=== PATIENT | female | born 1960 | race Caucasian/White ===

== ENCOUNTER 2016-11-16 00:54 | Inpatient (IN) | payer BC ==
[~2016-11-16] VITALS: Ht 157.5 cm; Wt 85.4 kg
[2016-11-16] VITALS (19 sets, daily range): BP systolic 96–110; BP diastolic 58–73; PULSE 61–80; RESP 16–24; TEMP 97.6–98.5; O2SAT 93–100
[~2016-11-16 00:54] MED LIST: ASPI81TA21 PO; CEPH500C3 PO; IBUP-238 PO; MACR100C PO; METO25 PO; PERC5TAB12 PO; PLAV75TA PO; TRAM100T19 PO; ZOCO80TA PO
[2016-11-16] MEDS ORDERED: HEPARIN SODIUM - IV 10,000 UNITS/10 ML VIAL IV STA (01:01)
[2016-11-16] MEDS ORDERED: ASPIRIN 81 MG CHEW TAB PO STA (01:01)
[2016-11-16] MEDS ORDERED: SODIUM CHLOR 0.9% 1000 ML INJ 1,000 ML IV ONE ×2 (01:01→01:15)
[2016-11-16] MEDS ORDERED: NITROGLYCERIN 0.4 MG SL 25 TABS/BTL SL STA (01:01)
[2016-11-16] MEDS ORDERED: METO25TA3 PO (01:07)
[2016-11-16] MEDS ORDERED: ASPI81CH CHEW (01:07)
[2016-11-16] MEDS ORDERED: PLAV75TA29 PO (01:07)
[2016-11-16] MEDS ORDERED: SIMV80TA PO (01:07)
[2016-11-16] MEDS ORDERED: ONDANSETRON HCL 4 MG/2 ML VIAL ONE ×2 (01:12→02:31)
[2016-11-16] MEDS ORDERED: NITROGLYCERIN-DEXTROSE INJ 250 ML IV SCH (01:15)
[2016-11-16] MEDS ORDERED: SODIUM CHLORIDE 0.9% FLUSH 10 ML FLUSH IVF PRN (01:15)
[2016-11-16 01:19] LABS: BASOPHIL # 0.1 TH/MM3 (0-0.2); EOSINOPHIL # 0.3 TH/MM3 (0-0.4); EOSINOPHIL % 3.1 % (0.0-4.0); HEMATOCRIT 44.5 % (35.0-46.0); HEMO FLAGS DIFF FINAL; LYMPH % 25.3 % (9.0-44.0); LYMPHOCYTE # 2.4 TH/MM3 (1.0-4.8); MEAN CELL VOLUME 89.7 FL (80.0-100.0); MEAN CORPUSCULAR HEMOGLOBIN 29.6 PG (27.0-34.0); MONO % 7.3 % (0.0-8.0); NEUT % 63.3 % (16.0-70.0); PLATELET COUNT 217 TH/MM3 (150-450); RED BLOOD COUNT 4.96 MIL/MM3 (4.00-5.30); RED CELL DISTRIBUTION WIDTH 13.7 % (11.6-17.2); WHITE BLOOD COUNT 9.5 TH/MM3 (4.0-11.0)
[2016-11-16 01:27] LABS: I-STAT POTASSIUM 4.4 MMOL/L (3.5-4.9); I-STAT SODIUM 140 MMOL/L (138-146)
--- NOTE | 2016-11-16 01:28 | RADRPT ---
EXAM DATE/TIME: 11/16/2016 01:12 [place] COMPARISON: No previous studies available for comparison. INDICATIONS : Stemi alert. MEDICAL HISTORY : Myocardial infarction. SURGICAL HISTORY : Coronary artery stent. ENCOUNTER: Initial ACUITY: 1 day PAIN SCORE: Non-responsive. LOCATION: Bilateral chest FINDINGS: A single view of the chest demonstrates the lungs to be symmetrically aerated without evidence of mas s, infiltrate or effusion. The cardiomediastinal contours are unremarkable. Osseous structures are intact. CONCLUSION: Normal examination for a patient of this age. Roshan Neal MD on November 16, 2016 at 1:26 Board Certified Radiologist. This report was verified electronically.
[2016-11-16] MEDS ORDERED: MIDAZOLAM HCL 2 MG/2 ML VIAL ONE ×2 (01:40→01:45)
[2016-11-16] MEDS ORDERED: HEPARIN-NS/PF INJ 500 ML ONE (01:40)
--- NOTE | 2016-11-16 01:44 | PD ---
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 She went to the bathroom as she also felt that she needed to move her bowels and fell to the ground. She denies any injury. [facility] was called and on their arrival she was noted to have a HR in the 30-40s, systolic BP of 68. IV access was obtained and the patient was given Atropine 0.5mg iv. The patient had improvement of the systolic bp up to 98 on arrival. She reports that the chest pressure radiates to the left arm. The pain is a 7-9/10 in severity. She has associated SOB and nausea. She has a history of CAD with an MA in 2010with 2 stents placed at that time and an MA in 2012 with a single stent placed at that time. She move to the area a year ago and has not established with a coremaker pipe. She last took her Plavix and metoprolol 1 day ago. She was given aspirin 162mg by ambulance services. She is a smoker an smokes approximately 5 cigs daily. The patient denies having any fever, chills, cough, congestion, neck pain, abdominal pain, urinary symptoms, or neurologic symptoms. PFSH Past Medical History Narrative Medical Her PMH consists of CAD with 2 prior MIs and 3 stents placed, tobacco use, hyperlipidemia, hypertension. Hx Anticoagulant Therapy: Yes Cardiac Catheterization: Yes (3 STENTS) Cardiovascular Problems: Yes (MA ) Diminished Hearing: No Menopausal: Yes Past Surgical History Narrative Surgical Her PSH is significant for two prior caths with total of 3 stents placed. Social History Alcohol Use: Yes (OCC) Tobacco Use: Yes (1 PK DAILY) Substance Use: No Allergies-Medications (Allergen,Severity, Reaction): Coded Allergies: No Known Allergies (Unverified , 09/29/15) Reported Meds & Prescriptions Reported Meds & Active Scripts Active Reported Simvastatin 80 Mg Tab 80 Mg PO DAILY Metoprolol Tartrate 25 Mg Tab 25 Mg PO DAILY Plavix (Clopidogrel Bisulfate) 75 Mg Tab 75 Mg PO DAILY Aspirin 81 Mg Chew 81 Mg CHEW DAILY Review of Systems Except as stated in HPI: all other systems reviewed are Neg General / Constitutional: No: Fever Eyes: No: Visual changes HENT: Positive: Lightheadedness, No: Headaches Cardiovascular: Positive: Chest Pain or Discomfort, Diaphoresis, Dyspnea on exertion Respiratory: Positive: Shortness of Breath Gastrointestinal: Positive: Nausea, Diarrhea, No: Abdominal Pain Genitourinary: No: Dysuria Musculoskeletal: No: Pain Skin: No Rash Neurologic: Positive: Weakness (generalized), No: Focal Abnormalities, Change in Mentation, Slurred Speech, Sensory Disturbance Psychiatric: No: Depression Endocrine: No: Polydipsia Hematologic/Lymphatic: No: Easy Bruising Physical Exam Narrative General: The patient is a well-developed well-nourished female, uncomfortable appearing on arrival, slightly diaphoretic. Head and Neck exam: Head is normocephalic atraumatic. Eyes: EOMI, pupils are equal round and reactive to light. Nose: Midline septum with pink mucous membranes Mouth: Dentition unremarkable. Moist mucus membranes. Posterior oropharynx is not erythematous. No tonsillar hypertrophy. Uvula midline. Airway patent. Neck: No palpable lymphadenopathy. No nuchal rigidity. No thyromegaly. Cardiovascular: Regular rate and rhythm without murmurs, gallops, or rubs. Lungs: Clear to auscultation bilaterally. No wheezes, rhonchi, or rales. Abdomen: Soft, without tenderness to palpation in all 4 quadrants of the abdomen. No guarding, rebound, or rigidity. Normal bowel sounds are audible. No tenderness on palpation of McBurney's point. Negative Wyatt's sign. Extremities: No clubbing, cyanosis, or edema. 2+ pulses in all 4 extremities. No calf tenderness on palpation. Back: No costovertebral angle tenderness to palpation. Neurologic Exam: Grossly nonfocal Skin Exam: No rash noted. Intact skin that is warm and slightly diaphoretic. Data Data Last Documented VS Vital Signs Date Time Temp Pulse Resp B/P Pulse Ox O2 Delivery O2 Flow Rate FiO2 11/16/16 01:39 61 24 110/67 100 Non-Rebreather 15 11/16/16 01:00 100 Orders Troponin I (11/16/16 01:01) Ckmb (Isoenzyme) Profile (11/16/16 01:01) Complete Blood Count With Diff (11/16/16 01:01) I-Stat Profile (11/16/16 01:01) I-Stat Creatinine (11/16/16 01:01) Calcium (11/16/16 01:01) Magnesium (Mg) (11/16/16 01:01) Prothrombin Time / Inr (Pt) (11/16/16 01:01) Act Partial Throm Time (Ptt) (11/16/16 01:01) B-Type Natriuretic Peptide (11/16/16 01:01) Chest, Single Ap (11/16/16 01:01) Electrocardiogram (11/16/16 01:01) Oxygen Administration (11/16/16 01:01) Iv Access Insert/Monitor (11/16/16 01:01) Oximetry (11/16/16 01:01) Sodium Chlor 0.9% 1000 Ml Inj (Ns 1000 M (11/16/16 01:01) Sodium Chloride 0.9% Flush (Ns Flush) (11/16/16 01:15) Nitroglycerin Sl (Nitrostat Sl) (11/16/16 01:01) Nitroglycerin-Dextrose Inj (Nitroglyceri (11/16/16 01:15) Heparin Inj (Heparin Inj) (11/16/16 01:01) Aspirin Chew (Aspirin Chew) (11/16/16 01:01) Sodium Chlor 0.9% 1000 Ml Inj (Ns 1000 M (11/16/16 01:15) Ondansetron Inj (Zofran Inj) (11/16/16 01:12) Heparin-Ns/Pf Inj (Heparin-Ns/Pf Inj) (11/16/16 01:40) Midazolam Inj (Versed Inj) (11/16/16 01:40) Fentanyl Inj (Fentanyl Inj) (11/16/16 01:40) Ondansetron Inj (Zofran Inj) (11/16/16 01:45) Midazolam Inj (Versed Inj) (11/16/16 01:45) Fentanyl Inj (Fentanyl Inj) (11/16/16 01:45) Heparin Inj (Heparin Inj) (11/16/16 01:45) Admit Order (Ed Use Only) (11/16/16 02:04) CKMB (11/16/16 01:01) CKMB% (11/16/16 01:01) Labs Laboratory Tests Test 11/16/16 11/16/16 01:01 01:09 Bedside Hemoglobin 12.9 G/DL Bedside Hematocrit 38.0 % Bedside Sodium 140 MMOL/L Bedside Potassium 4.4 MMOL/L Bedside Chloride 108 MMOL/L Bedside Blood Urea Nitrogen 18 MG/DL Bedside Creatinine 1.2 MG/DL Bedside Glucose 139 MG/DL Calcium Level 8.9 MG/DL Magnesium Level 2.2 MG/DL Total Creatine Kinase 157 U/L Creatine Kinase MB 2.5 NG/ML Troponin I 0.19 NG/ML White Blood Count 9.5 TH/MM3 Red Blood Count 4.96 MIL/MM3 Hemoglobin 14.7 GM/DL Hematocrit 44.5 % Mean Corpuscular Volume 89.7 FL Mean Corpuscular Hemoglobin 29.6 PG Mean Corpuscular Hemoglobin 33.0 % Concent Red Cell Distribution Width 13.7 % Platelet Count 217 TH/MM3 Mean Platelet Volume 8.3 FL Neutrophils (%) (Auto) 63.3 % Lymphocytes (%) (Auto) 25.3 % Monocytes (%) (Auto) 7.3 % Eosinophils (%) (Auto) 3.1 % Basophils (%) (Auto) 1.0 % Neutrophils # (Auto) 6.0 TH/MM3 Lymphocytes # (Auto) 2.4 TH/MM3 Monocytes # (Auto) 0.7 TH/MM3 Eosinophils # (Auto) 0.3 TH/MM3 Basophils # (Auto) 0.1 TH/MM3 CBC Comment DIFF FINAL Differential Comment B-Type Natriuretic Peptide 15 PG/ML MDM Medical Decision Making Medical Screen Exam Complete: Yes Emergency Medical Condition: Yes Medical Record Reviewed: Yes Interpretation(s) Last Impressions Chest X-Ray 11/16/16 0101 Signed Impressions: Service Date/Time: Wednesday, November 16, 2016 01:12 - CONCLUSION: Normal examination for a patient of this age. Roshan Neal MD Differential Diagnosis STEMI, versus non-STEMI, versus unstable angina, versus aortic dissection Narrative Course During the course of the patients emergency department visit, the patients history, examination, and differential diagnosis were reviewed with the patient. The patient had IV access obtained and blood work sent for analysis. ECG shows a SR with a rate of 63, ST elevation in lead III, ST depression in I, AVL, V1, V2. A STEMI alert was called. I spoke to Dr. Genao at 1:05 AM. He agreed to take the patient to the molder labels. Heparin was ordered as a 60U per KG bolus. EVAC gave aspirin 162mg motorized squad captain and another 162mg was ordered. The patient was initially provided normal saline 1 L IV fluid bolus, Zofran 4 mg IV times one for nausea. The patients laboratory studies were reviewed and remarkable for a white count of 9.5, hemoglobin 12.9, platelets 217 with a normal differential, i-STAT with creatinine reveals a creatinine of 1.2, glucose 139, CPK 157, troponin I 0.19, BNP is 15. Radiology studies were reviewed and remarkable for a chest x-ray that showed no evidence of acute abnormality. No widened mediastinum suggestive of aortic dissection. The patients results were discussed with the patient, including the plan of care. I explained that further testing and/ or monitoring is indicated based on the patients history, examination, and/ or laboratory findings. Therefore, I recommended admission for additional evaluation. The patient expressed understanding and was agreeable with this plan. The patient was admitted to the hospital in critical condition and sent to a bed under the care of a coremaker pipe, and the [facility]. The patients results were discussed with the patient, including the plan of care. I explained that further testing and/ or monitoring is indicated based on the patients history, examination, and/ or laboratory findings. Therefore, I recommended admission for additional evaluation. The patient expressed understanding and was agreeable with this plan. The patient was admitted to the hospital in guarded condition and sent to a bed under the care of the [facility]. Physician Communication Physician Communication A call has been placed out to the [facility] regarding admission. I spoke to Valdo Kilgore regarding this patient's admission. He did agree to admit the patient to the [facility]. Diagnosis Primary Impression: STEMI (ST elevation myocardial infarction) Qualified Code: I21.3 - ST elevation myocardial infarction (STEMI), unspecified artery Admitting Information Admitting Physician Requests: Admit Charissa Hernández MD Nov 16, 2016 01:44
[2016-11-16] MEDS ORDERED: HEPARIN SODIUM - IV 10,000 UNITS/10 ML VIAL ONE (01:45)
[2016-11-16] MEDS ORDERED: ONDANSETRON HCL 4 MG/2 ML VIAL IV ONE (01:45)
[2016-11-16 02:07] LABS: MAGNESIUM 2.2 MG/DL (1.5-2.5)
[2016-11-16 02:10] LABS: CREATINE KINASE 157 U/L (26-192)
[2016-11-16] MEDS ORDERED: MORPHINE SULFATE 4 MG/ML INJ IV PRN ×2 (02:15)
[2016-11-16] MEDS ORDERED: SODIUM CHLORIDE 0.9% FLUSH 10 ML FLUSH IV FLUSH PRN (02:15)
[2016-11-16] MEDS ORDERED: NALOXONE HCL 0.4 MG/ML AMP IV PRN (02:15)
[2016-11-16] MEDS ORDERED: SENNOSIDES 8.6 MG TAB PO PRN (02:15)
[2016-11-16] MEDS ORDERED: ACETAMINOPHEN 325 MG TAB PO PRN ×2 (02:15→03:15)
[2016-11-16] MEDS ORDERED: ONDANSETRON HCL 4 MG/2 ML VIAL IVP PRN (02:15)
[2016-11-16 02:22] LABS: CKMB 2.5 NG/ML (0.5-3.6)
[2016-11-16] MEDS ORDERED: CLOPIDOGREL 300 MG TAB ONE (02:51)
[2016-11-16] MEDS ORDERED: SODIUM CHLOR 0.9% 1000 ML INJ 1,000 ML IV SCH (03:15)
[2016-11-16] MEDS ORDERED: MISC INFORMATION XX ONE (03:15)
[2016-11-16] MEDS ORDERED: TEMAZEPAM 15 MG CAP PO PRN (03:15)
[2016-11-16] MEDS ORDERED: oxyCODONE/ACETAMINOPHEN 5 MG/325 MG TAB PO PRN (03:15)
[2016-11-16 03:27] LABS: PROTHROMBIN TIME - PATIENT 11.3 SEC (9.8-11.6)
[2016-11-16 03:29] LABS: APTT (PATIENT) GREATER THAN 153.4 SEC (24.3-30.1)
[2016-11-16] MEDS: ISOSORBIDE MONONITRATE 30 MG TAB PO SCH (06:13)
--- NOTE | 2016-11-16 08:35 | EKG ---
Date Performed: 11/16/2016 Time Performed: 04:04:46 PTAGE: 56 years EKG: Sinus rhythm . Generalized low QRS voltages Inferior, lateral ST elevation, consider acute injury pattern Borderli ne ECG PREVIOUS TRACING : 11/16/2016 00.58 No significant change from previous tracing noted. DOCTOR: Bennie Maria Interpretating Date/Time 11/16/2016 08:34:53
--- NOTE | 2016-11-16 08:38 | EKG ---
Date Performed: 11/16/2016 Time Performed: 00:58:45 PTAGE: 56 years EKG: Sinus rhythm ST ELEVATION, CONSIDER INFERIOR, LATERAL INJURY ACUTE SD PREVIOUS TRACING : 07/29/2015 14.10 Compared to previous tracing, possible acute inferior and lateral injury pattern is now present. DOCTOR: Bennie Maria Interpretating Date/Time 11/16/2016 08:36:46
--- NOTE | 2016-11-16 08:52 | MB ---
cc: VICENTE MANLEY DATE OF CONSULTATION: 11/16/2016 HISTORY OF PRESENT ILLNESS Ms. Morales is a 56-year-old white female with history of coronary artery disease, myocardial infarction in 2010 with placement of two stents, and in 2012 with placement of a single stent. She presented with one hour of chest pressure, diaphoresis, lightheadedness and nausea. She went to the bathroom and fell but was not injured. She was brought by EMS. On arrival she was having severe chest pressure radiating into the left arm associated with shortness of breath and nausea. PAST MEDICAL HISTORY 1. Coronary artery disease as above. 2. Hypertension. 3. Dyslipidemia. 4. Inferior wall myocardial infarction. MEDICATIONS 1. Simvastatin 80 mg a day. 2. Metoprolol 25 mg a day. 3. Plavix 75 mg a day. 4. Aspirin 81 mg a day. ALLERGIES None. SOCIAL HISTORY The patient continues to smoke one pack a day. She drinks alcohol occasionally. FAMILY HISTORY Positive for heart disease. REVIEW OF SYSTEMS Otherwise negative. PHYSICAL EXAMINATION VITAL SIGNS: Blood pressure 198/67, pulse 63 and regular. HEENT: Negative. NECK: 2+ carotid upstrokes. No bruits. LUNGS: Clear. HEART: Regular with no murmur or gallop. ABDOMEN: Soft. No bruit. EXTREMITIES: Without edema. 2+ distal pulses. NEUROLOGIC: Grossly nonfocal. EKG EKG was reviewed and showed normal sinus rhythm and inferior ST elevation with anterior reciprocal ST changes. LABORATORY Hemoglobin 14.7. Potassium 4.4. Creatinine 1.2. Magnesium 2.2. CK 157. Troponin 0.19. BNP 15. DIAGNOSIS 1. Acute inferior wall myocardial infarction. 2. Coronary artery disease, history of myocardial infarction and coronary stenting. 3. Hypertension. 4. Dyslipidemia. 5. Smoking. DISPOSITION Ms. Morales will undergo emergent cardiac catheterization and coronary intervention. She understands the risks and benefits, and wishes to proceed. MD DAMON Gastelum/LAE /3:15 AM /8:39 AM [facility]
[2016-11-16] MEDS: METOPROLOL TARTRATE 25 MG TAB PO SCH ×2 (09:00→20:34)
[2016-11-16] MEDS: LISINOPRIL 5 MG TAB PO SCH (09:00)
[2016-11-16 09:13] LABS: AUTOMATED NEUTROPHIL # 7.4 TH/MM3 (1.8-7.7); BASOPHIL % 0.5 % (0.0-2.0); EOSINOPHIL % 0.4 % (0.0-4.0); HEMATOCRIT 34.6 % (35.0-46.0); HEMO FLAGS DIFF FINAL; LYMPH % 14.7 % (9.0-44.0); LYMPHOCYTE # 1.4 TH/MM3 (1.0-4.8); MEAN CELL VOLUME 88.1 FL (80.0-100.0); MEAN CORPUSCULAR HEMOGLOBIN 29.5 PG (27.0-34.0); MEAN CORPUSCULAR HGB CONC 33.5 % (32.0-36.0); MONO % 6.2 % (0.0-8.0); NEUT % 78.2 % (16.0-70.0); PLATELET COUNT 166 TH/MM3 (150-450); RED BLOOD COUNT 3.93 MIL/MM3 (4.00-5.30); RED CELL DISTRIBUTION WIDTH 13.9 % (11.6-17.2); WHITE BLOOD COUNT 9.5 TH/MM3 (4.0-11.0)
[2016-11-16] MEDS: CLOPIDOGREL 75 MG TAB PO SCH (09:20)
[2016-11-16] MEDS: ASPIRIN 81 MG CHEW TAB PO SCH (09:21)
[2016-11-16] MEDS: SODIUM CHLORIDE 0.9% FLUSH 10 ML FLUSH IV FLUSH SCH ×2 (09:21→20:32)
[2016-11-16] MEDS: ATORVASTATIN 80 MG TAB PO SCH (09:21)
--- NOTE | 2016-11-16 14:16 | MH ---
cc: ROSANNE BROWN MD DATE OF ADMISSION: 11/16/2016 DATE OF : 1960 CHIEF COMPLAINT Chest pain. RECENT TRAVEL: Travel in the last 30 days, no. HISTORY OF PRESENT ILLNESS: This is a 56-year-old white female who is been in her usual state of health up until yesterday the patient states that she works a evening shift job with [employer] and had gotten home last night around 11 o'clock at 11:15 the patient had acute onset of chest pain which was associated with diaphoresis pressure and nausea. The patient felt the urge to move her bowels and started out to the bathroom. The patient became immediately lightheaded and fell to the ground. The roommate who was in the home called [facility]AC and the patient was escorted to the hospital. Initially EVAC found her heart rate to be in the 30s and 40s with a blood pressure is 68 systolic, according to the record IV access was obtained and the patient was given 0.5 mg of atropine IV. On arrival to the hospital according to the record. BP was 98 systolic. The patient was still having chest pain and epigastric pain that radiated into her left arm. The patient was short of breath during this period of time. She was given 162 mg of aspirin in the ambulance and cardiology was consulted for her plan of care. The patient does have a history of coronary artery disease with two stents placed in 2010. She also had a heart attack in 2012 and had a single stent during that period of time. The patient states that she usually takes her medications regularly but had taking her Plavix and metoprolol 24 hours before. The patient was taken to the lab coordinator approximately O200 and had a new stent replaced. She is currently resting comfortably alert and oriented in the ICU setting. Currently denies any further chest pain. No shortness of breath. MEDICAL HISTORY 1. Coronary artery disease with two previous MIs and three stents placed before this admission. 2. Coronary artery disease. 3. MIs 4. Hyperlipidemia 5. Hypertension 6. Tobacco abuse. PAST SURGICAL HISTORY Previous heart cath with Cardiac stents times three placed. ALLERGIES No known MEDICATIONS medications simvastatin. 1. Metoprolol. 2. Plavix. 3. Aspirin. SOCIAL HISTORY The patient lives with a female roommate in her home occasional alcohol use, approximately a pack a day cigarettes noted but the patient states that she has only been smoking three to five cigarettes a day recently. REVIEW OF SYSTEMS A 12-point review was obtained the patient was positive for epigastric pain, dizziness, diaphoresis, nausea and other symptoms noted in the history of present illness. The patient denies any headache, no abdominal pain, no symptoms of polydipsia, polyuria or polyphagia. The patient does note she bruises easily but other systems are negative. The patient did have a bowel movement within the past two days. PHYSICAL EXAMINATION VITAL SIGNS: Temperature 98, five, pulse 78, respirations 18, blood pressure 105/63 and 103/67, O2 sat 98. The patient is currently on room air. IN GENERAL: Mildly obese well-developed, well-nourished female looks to be her stated age resting in the bed. She is currently having no chest pain. SKIN: Skin is slightly pale but warm and dry. HEAD, EYES, EARS, NOSE, AND THROAT: Atraumatic, normocephalic. Mucous membranes are pink and moist. Pupils equal, round, reactive to light and accommodation. NECK: Neck is supple. Trachea is midline. CARDIOVASCULAR SYSTEM: S1-S2, no murmurs, rubs or gallops audible. She has no pedal edema or lower extremity edema, her pulses are intact. LUNGS: The lungs are essentially clear, anteriorly and posterior with no wheezes, rales or rhonchi. ABDOMEN: The abdomen is flat, soft, nontender, nondistended. Active bowel sounds. EXTREMITIES: No clubbing, no cyanosis. Pulses intact. NEUROLOGICALLY: She is alert, oriented, a fairly good historian. PSYCHIATRIC: Appropriate mood and affect. DIAGNOSTIC DATA WBC count 9.5, RBC 3.93, hemoglobin 11.6, hematocrit 34.6, neutrophil count 78.2, PT/INR is 1, PTT on heparin drip noted at 02:25 was 153.4, sodium 140, potassium 4.4, chloride 108, BUN 18, creatinine 1.2, glucose 139, calcium 8.9, mag 2.2, creatinine kinase 157, CK-MB 2.5, troponin 0.19, BNP 15 IMAGING STUDIES Shows chest x-ray to be a normal exam for a patient of this age. ASSESSMENT 1. Non STEMI, She is status post cardiac cath with coronary stent. Tobacco abuse. 2. History of coronary artery disease and cardiovascular disease. Occasional alcohol dependence. 3. Hyperglycemia mild non-diabetic. 4. Some acute kidney injury mild. PLAN: Plan is to monitor, Cardiology has been consulted for their expert opinion to opinion and to follow during this hospital stay the patient medications were reconciled and she is currently on aspirin and Plavix, Lopressor, Prinivil, Lipitor or Imdur and pain management. We will monitor her for her bowel regimen monitor vital signs every one to four depending on her needs. The patient is off of her bedrest status post her cardiac cath, no active bleeding notes no signs of any complications. The patient can be out of bed with assistance heart healthy diet. The patient is full code, full aggressive care and we will follow her needs. DICTATED BY: SIXTO Girard MD NORMA Guajardo/darlyn /10:35 AM /2:13 PM pt IS SEEN & Examined d/w PT d/w Camryn mancini input appreciated see Orders see H&P will f/u Rosanne Brown MD Nov 16, 2016 16:25 MTDD
--- NOTE | 2016-11-16 16:26 | HHI.PR ---
Objective Objective Results - Vital Signs Date Time Temp Pulse Resp B/P Pulse Ox O2 Delivery O2 Flow Rate FiO2 11/16/16 12:00 80 11/16/16 12:00 98.5 80 17 103/71 98 11/16/16 10:00 71 11/16/16 08:00 98.5 78 17 105/63 98 11/16/16 08:00 78 11/16/16 07:38 93 21 11/16/16 07:00 Room Air 11/16/16 06:00 69 11/16/16 04:00 64 11/16/16 04:00 97.6 65 16 103/73 100 11/16/16 03:22 96 Nasal Cannula 5.00 11/16/16 01:39 61 24 110/67 100 Non-Rebreather 15 11/16/16 01:03 100 Non-Rebreather 15 11/16/16 01:03 100 Non-Rebreather 15 11/16/16 01:00 98 15.00 100 11/16/16 00:55 100 15.00 100 11/16/16 00:55 63 20 98/67 100 11/16/16 00:55 100 Nasal Cannula 15.00 I/O 11/15/16 11/15/16 11/15/16 11/16/16 11/16/16 11/16/16 07:00 15:00 23:00 07:00 15:00 23:00 Intake Total 661 ml Output Total 0 ml Balance 661 ml Intake Oral 240 ml IV Total 421 ml Output Urine Total 0 ml # Bowel Movements 0 Result Diagram: 11/16/16 0810 Other Results Laboratory Tests Test 11/16/16 11/16/16 11/16/16 11/16/16 01:01 01:09 02:25 08:10 Bedside Hemoglobin 12.9 Bedside Hematocrit 38.0 Bedside Sodium 140 Bedside Potassium 4.4 Bedside Chloride 108 Bedside Blood Urea Nitrogen 18 Bedside Creatinine 1.2 Bedside Glucose 139 Calcium Level 8.9 Magnesium Level 2.2 Total Creatine Kinase 157 Creatine Kinase MB 2.5 Troponin I 0.19 White Blood Count 9.5 9.5 Red Blood Count 4.96 3.93 Hemoglobin 14.7 11.6 Hematocrit 44.5 34.6 Mean Corpuscular Volume 89.7 88.1 Mean Corpuscular Hemoglobin 29.6 29.5 Mean Corpuscular Hemoglobin 33.0 33.5 Concent Red Cell Distribution Width 13.7 13.9 Platelet Count 217 166 Mean Platelet Volume 8.3 8.6 Neutrophils (%) (Auto) 63.3 78.2 Lymphocytes (%) (Auto) 25.3 14.7 Monocytes (%) (Auto) 7.3 6.2 Eosinophils (%) (Auto) 3.1 0.4 Basophils (%) (Auto) 1.0 0.5 Neutrophils # (Auto) 6.0 7.4 Lymphocytes # (Auto) 2.4 1.4 Monocytes # (Auto) 0.7 0.6 Eosinophils # (Auto) 0.3 0.0 Basophils # (Auto) 0.1 0.0 CBC Comment DIFF FINAL DIFF FINAL Differential Comment B-Type Natriuretic Peptide 15 Prothrombin Time 11.3 Prothromb Time International 1.0 Ratio Activated Partial GREATER THAN Thromboplast Time 153.4 Hematology Comments Physical Exam Physical Exam pt IS SEEN & Examined d/w PT d/w Camryn mancini input appreciated see Orders see H&P will f/u Fredrick Brown MD Nov 16, 2016 16:25
[2016-11-17] VITALS (13 sets, daily range): BP systolic 94–105; BP diastolic 51–69; PULSE 60–82; RESP 16–18; TEMP 98.1–98.8; O2SAT 94–96
[2016-11-17] MEDS: ISOSORBIDE MONONITRATE 30 MG TAB PO SCH (05:48)
[2016-11-17 06:18] LABS: AUTOMATED NEUTROPHIL # 4.6 TH/MM3 (1.8-7.7); BASOPHIL % 0.4 % (0.0-2.0); EOSINOPHIL # 0.2 TH/MM3 (0-0.4); EOSINOPHIL % 2.9 % (0.0-4.0); HEMO FLAGS DIFF FINAL; LYMPH % 24.9 % (9.0-44.0); LYMPHOCYTE # 1.9 TH/MM3 (1.0-4.8); MEAN CELL VOLUME 88.8 FL (80.0-100.0); MEAN CORPUSCULAR HEMOGLOBIN 29.7 PG (27.0-34.0); MEAN CORPUSCULAR HGB CONC 33.4 % (32.0-36.0); MONO % 9.6 % (0.0-8.0); NEUT % 62.2 % (16.0-70.0); PLATELET COUNT 155 TH/MM3 (150-450); RED BLOOD COUNT 3.49 MIL/MM3 (4.00-5.30); RED CELL DISTRIBUTION WIDTH 13.4 % (11.6-17.2); WHITE BLOOD COUNT 7.4 TH/MM3 (4.0-11.0)
[2016-11-17 06:52] LABS: BICARBONATE 23.4 MEQ/L (21.0-32.0); POTASSIUM 3.5 MEQ/L (3.5-5.1)
[2016-11-17 07:41] LABS: CKMB 57.8 NG/ML (0.5-3.6)
[2016-11-17] MEDS: METOPROLOL TARTRATE 25 MG TAB PO SCH (08:56)
[2016-11-17] MEDS: ATORVASTATIN 80 MG TAB PO SCH (08:56)
[2016-11-17] MEDS: LISINOPRIL 5 MG TAB PO SCH (08:56)
[2016-11-17] MEDS: CLOPIDOGREL 75 MG TAB PO SCH (08:56)
[2016-11-17] MEDS: SODIUM CHLORIDE 0.9% FLUSH 10 ML FLUSH IV FLUSH SCH (08:56)
[2016-11-17] MEDS: ASPIRIN 81 MG CHEW TAB PO SCH (08:56)
--- NOTE | 2016-11-17 09:42 | MA ---
cc: VICENTE MANLEY DATE: 11/16/[address] elevation myocardial infarction. This procedure is emergent. Class IV angina. PROCEDURE PERFORMED 1. Retrograde left heart catheterization with left ventriculography and selective coronary angiography. 2. Thrombectomy, angioplasty and stenting of the right coronary artery. 3. Moderate sedation. ACCESS SITE Right femoral artery. EQUIPMENT USED 5 Gambian pigtail catheter. 5 Gambian JL4 and AR-1 coronary catheters. AR-1 guide with side holes. BMW wire. [employer]-Star wire. [place] thrombectomy catheter. 1.5, 2.0 and 2.5 balloons for pre-dilatation. 3.0 x 22 mm Resolute stent at 16 atmospheres to the mid RCA. 3.0 x 18 mm Resolute stent at 16 atmospheres to the proximal RCA. MEDICATIONS Versed IV, Fentanyl IV, heparin IV, Plavix 600 mg p.o. CONTRAST Omnipaque 150 cc. COMPLICATIONS None. METHOD OF HEMOSTASIS Manual compression. ESTIMATED BLOOD LOSS Less than 10 cc. RESULTS HEMODYNAMICS Heart rate 65 beats per minute. Left ventricular end-diastolic pressure 18 mmHg. Left ventricle 100/18. Aorta 100/66/82. LEFT VENTRICULOGRAPHY Ejection fraction 35% with inferior akinesis. No mitral regurgitation. CORONARY ANGIOGRAPHY The left main coronary artery has 20% stenosis in the distal portion. The LAD is patent. The first diagonal artery is patent. The ramus intermedius is patent. The left circumflex artery is patent. OM1 patent. The right coronary artery is a large dominant vessel which is totally occluded in-stent in the proximal portion. There is 40% stenosis in the mid portion and 40% stenosis in the distal portion prior to the bifurcation. PDA is patent. The PLV is a large vessel extending toward the apex and is patent. The stenosis in the right coronary artery was 30 mm long. Pre FREIDA flow 0, post FREIDA flow III, post stenosis 0. Post intervention angiography revealed excellent patency of the stented segment and no evidence of dissection, thrombosis or distal embolization. DIAGNOSIS 1. Acute inferior wall myocardial infarction. 2. Coronary artery disease with total occlusion of the dominant right coronary artery. 3. Moderate left ventricular systolic dysfunction consistent with ischemic cardiomyopathy. 4. Successful thrombectomy, angioplasty and stenting of the mid right coronary artery. DISPOSITION Ms. Morales will be monitored on telemetry after her procedure. We will continue long-term therapy with Plavix and aspirin. We will also continue aggressive modification of her cardiac risk factors. She was strongly encouraged to quit smoking. MD DAMON Gastelum/ALE /3:09 AM /9:27 AM [facility]
--- NOTE | 2016-11-17 14:34 | HHI.PR ---
Subjective Remarks resting in bed alert' awke no chest pain no SOB (Camryn Lamar) Objective Objective Results - Vital Signs Date Time Temp Pulse Resp B/P Pulse Ox O2 Delivery O2 Flow Rate FiO2 11/17/16 14:00 70 11/17/16 13:06 64 11/17/16 12:07 62 11/17/16 11:15 98.8 72 16 94/51 96 11/17/16 11:00 64 11/17/16 10:01 82 11/17/16 09:00 66 11/17/16 08:25 96 21 11/17/16 08:00 60 11/17/16 08:00 94 Room Air 11/17/16 08:00 98.8 72 16 105/67 94 11/17/16 07:00 67 11/17/16 04:00 98.1 74 18 103/60 96 11/17/16 04:00 72 11/17/16 02:00 68 11/17/16 00:00 68 11/17/16 00:00 98.3 73 18 94/69 95 11/16/16 22:00 76 11/16/16 21:11 95 21 11/16/16 20:00 98.3 75 18 96/60 97 11/16/16 20:00 75 11/16/16 19:00 Room Air 97 11/16/16 18:00 74 11/16/16 17:00 70 11/16/16 16:00 70 11/16/16 16:00 98.1 76 18 101/58 96 11/16/16 15:00 78 I/O 11/16/16 11/16/16 11/16/16 11/17/16 11/17/16 11/17/16 07:00 15:00 23:00 07:00 15:00 23:00 Intake Total 661 ml 360 ml Output Total 0 ml Balance 661 ml 360 ml Intake Oral 240 ml 360 ml IV Total 421 ml 0 ml Output Urine Total 0 ml # Voids 2 2 # Bowel Movements 0 0 (Camryn Lamar) Result Diagram: 11/17/16 0540 11/17/16 0540 ROS General: Other (10 point ROS done, no chest pain, systems unremarkable , fatigue) Pulmonary: Cough (occ.) GI: BM (today) (Camryn Lamar) Physical Exam Physical Exam PHYSICAL EXAMINATION GENERAL: This is a well-developed, well-nourished mildly obese female who appears to be in no acute distress. She is alert and awake, HEAD: Normocephalic without any lesion or mass noted. Facial features appear symmetric. OROPHARYNGEAL: Oropharynx without erythema or edema. NECK: Supple. No nuchal rigidity or lymphadenopathy. Trachea midline without deviation. CARDIAC: Regular rhythm, regular rate, S1 and S2 are heard. LUNGS: Clear to auscultation bilaterally. ABDOMEN: Soft, nontender, no organomegaly or masses. Bowel sounds are heard in all four quadrants. No rebound. No guarding. EXTREMITIES: no edema. Pulses equal bilateral. NEUROLOGICAL: Patient mood and affect appropriate. No focal deficit SKIN:Warm and moist Objective Remarks I have no pain or SOB (Camryn Lamar) A/P Assessment and Plan 1. Non STEMI, She is status post cardiac cath with coronary stent. Tobacco abuse. vitals reviewed, normal trends no chest pain since adm. Increase activity and ambulate. assess for any pain Appreciate cardiology input, medical management 2. History of coronary artery disease and cardiovascular disease. Nstemia, medical management 3. Hyperglycemia mild non-diabetic. accuchecks achs, with SS , stable 4. Some acute kidney injury mild monitor labs, BUN normal range, creatinine stable Discharge when cardiac clear, home. Discussed With: Nurse, Family (pt.), Other (dr. Brown, seen on his behalf) ( Camryn Lamar) Assessment and Plan pt is seen & examined d/w PT d/w Camryn feels well/eager to go home No CP or SOB ambulating in the room d/w Dr fuentes/ he cleared her for d/c d/c home today ' see [facility] see Orders f/u pcp f/u card stop smoking completely (Fredrick Brown MD) Camryn Lamar Nov 17, 2016 14:34 Fredrick Brown MD Nov 17, 2016 14:40
--- NOTE | 2016-11-17 14:38 | PD.CARD.PN ---
Subjective Subjective Remarks No CP or SOB, ambulating without difficulties Objective Medications Current Medications Medications (Trade) Dose Ordered Sig/Bernarda Route Start Time Stop Time Status Last Admin (Nitroglycerin-Dextrose Inj) 250 ml @ 0 mls/hr TITRATE IV 11/16/16 01:15 (NS Flush) 2 ml UNSCH PRN IV FLUSH 11/16/16 02:15 (NS Flush) 2 ml BID IV FLUSH 11/16/16 09:00 11/17/16 08:56 (Tylenol) 650 mg Q4H PRN PO 11/16/16 02:15 (Zofran Inj) 4 mg Q6H PRN IVP 11/16/16 02:15 (Senokot) 17.2 mg Q12H PRN PO 11/16/16 02:15 (Narcan Inj) 0.4 mg UNSCH PRN IV 11/16/16 02:15 (Morphine Inj) 2 mg Q3H PRN IV 11/16/16 02:15 (Morphine Inj) 4 mg Q3H PRN IV 11/16/16 02:15 (Tylenol) 325 mg Q4H PRN PO 11/16/16 03:15 (Percocet 5-325 Mg) 2 tab Q4H PRN PO 11/16/16 03:15 (Restoril) 15 mg HS PRN PO 11/16/16 03:15 (Aspirin Chew) 81 mg DAILY PO 11/16/16 09:00 11/17/16 08:56 (Plavix) 75 mg DAILY PO 11/16/16 09:00 11/17/16 08:56 (Lopressor) 12.5 mg BID PO 11/16/16 09:00 11/17/16 08:56 (Prinivil) 2.5 mg DAILY PO 11/16/16 09:00 11/17/16 08:56 (Lipitor) 80 mg DAILY PO 11/16/16 09:00 11/17/16 08:56 (Imdur) 30 mg DAILY@07 PO 11/16/16 07:00 11/17/16 05:48 Vital Signs / I&O Vital Signs Date Time Temp Pulse Resp B/P Pulse Ox O2 Delivery O2 Flow Rate FiO2 11/17/16 14:00 70 11/17/16 13:06 64 11/17/16 12:07 62 11/17/16 11:15 98.8 72 16 94/51 96 11/17/16 11:00 64 11/17/16 10:01 82 11/17/16 09:00 66 11/17/16 08:25 96 21 11/17/16 08:00 60 11/17/16 08:00 94 Room Air 11/17/16 08:00 98.8 72 16 105/67 94 11/17/16 07:00 67 11/17/16 04:00 98.1 74 18 103/60 96 11/17/16 04:00 72 11/17/16 02:00 68 11/17/16 00:00 68 11/17/16 00:00 98.3 73 18 94/69 95 11/16/16 22:00 76 11/16/16 21:11 95 21 11/16/16 20:00 98.3 75 18 96/60 97 11/16/16 20:00 75 11/16/16 19:00 Room Air 97 11/16/16 18:00 74 11/16/16 17:00 70 11/16/16 16:00 70 11/16/16 16:00 98.1 76 18 101/58 96 11/16/16 15:00 78 I/O 11/16/16 11/16/16 11/16/16 11/17/16 11/17/16 11/17/16 07:00 15:00 23:00 07:00 15:00 23:00 Intake Total 661 ml 360 ml Output Total 0 ml Balance 661 ml 360 ml Intake Oral 240 ml 360 ml IV Total 421 ml 0 ml Output Urine Total 0 ml # Voids 2 2 # Bowel Movements 0 0 Physical Exam GENERAL: In NAD SKIN: Warm and dry. HEAD: Normocephalic. EYES: No scleral icterus. No injection or drainage. NECK: Supple, trachea midline. No JVD or lymphadenopathy. CARDIOVASCULAR: Regular rate and rhythm without murmurs, gallops, or rubs. RESPIRATORY: Breath sounds equal bilaterally. No accessory muscle use. GASTROINTESTINAL: Abdomen soft, non-tender, nondistended. MUSCULOSKELETAL: No cyanosis, or edema. Laboratory Laboratory Tests Test 11/17/16 05:40 White Blood Count 7.4 TH/MM3 Red Blood Count 3.49 MIL/MM3 Hemoglobin 10.4 GM/DL Hematocrit 31.0 % Mean Corpuscular Volume 88.8 FL Mean Corpuscular Hemoglobin 29.7 PG Mean Corpuscular Hemoglobin 33.4 % Concent Red Cell Distribution Width 13.4 % Platelet Count 155 TH/MM3 Mean Platelet Volume 8.6 FL Neutrophils (%) (Auto) 62.2 % Lymphocytes (%) (Auto) 24.9 % Monocytes (%) (Auto) 9.6 % Eosinophils (%) (Auto) 2.9 % Basophils (%) (Auto) 0.4 % Neutrophils # (Auto) 4.6 TH/MM3 Lymphocytes # (Auto) 1.9 TH/MM3 Monocytes # (Auto) 0.7 TH/MM3 Eosinophils # (Auto) 0.2 TH/MM3 Basophils # (Auto) 0.0 TH/MM3 CBC Comment DIFF FINAL Differential Comment Sodium Level 143 MEQ/L Potassium Level 3.5 MEQ/L Chloride Level 110 MEQ/L Carbon Dioxide Level 23.4 MEQ/L Anion Gap 10 MEQ/L Blood Urea Nitrogen 14 MG/DL Creatinine 1.06 MG/DL Estimat Glomerular Filtration 54 ML/MIN Rate Random Glucose 104 MG/DL Calcium Level 8.3 MG/DL Total Creatine Kinase 790 U/L Creatine Kinase MB 57.8 NG/ML Creatine Kinase MB % 7.3 % Triglycerides Level 151 MG/DL Cholesterol Level 141 MG/DL LDL Cholesterol 77 MG/DL HDL Cholesterol 34.0 MG/DL Cholesterol/HDL Ratio 4.14 RATIO Imaging Last Impressions Chest X-Ray 11/16/16 0101 Signed Impressions: Service Date/Time: Wednesday, November 16, 2016 01:12 - CONCLUSION: Normal examination for a patient of this age. Roshan Neal MD Assessment and Plan Problem List: (1) STEMI (ST elevation myocardial infarction) (2) CAD (coronary artery disease) (3) Smoking (4) Cardiomyopathy Assessment and Plan Stable from cardiac standpoint. Continue Plavix, ASA, statin, beta neema, KATHY/ ARB. DC home. F/u w me as outpatient. Problem Qualifiers (1) STEMI (ST elevation myocardial infarction): Qualified Code: I21.3 - ST elevation myocardial infarction (STEMI), unspecified artery Milton Genao MD Nov 17, 2016 14:38
[2016-11-17] MEDS ORDERED: LISI-519 PO (14:46)
[2016-11-17] MEDS ORDERED: ISOS30TA3 PO (14:47)
== END 2016-11-17 15:15 | disposition home or self-care (01) | DRG 249 ==
LOC: NEPC 00:54 → NEDA 02:06 → N03A 03:12 → HCIN 13:40
PROVIDERS: ADMIT Specialist; ATTEND Specialist
PROC: 02703EZ Dilation of Coronary Artery, One Artery with Two Intraluminal Devices, Percutaneous Approach (ICD-10-PCS; principal; 2016-11-16)
PROC: 02C03ZZ Extirpation of Matter from Coronary Artery, One Artery, Percutaneous Approach (ICD-10-PCS; 2016-11-16)
PROC: 4A023N7 Measurement of Cardiac Sampling and Pressure, Left Heart, Percutaneous Approach (ICD-10-PCS; 2016-11-16)
PROC: B2111ZZ Fluoroscopy of Multiple Coronary Arteries using Low Osmolar Contrast (ICD-10-PCS; 2016-11-16)
PROC: B2151ZZ Fluoroscopy of Left Heart using Low Osmolar Contrast (ICD-10-PCS; 2016-11-16)
DX: I21.19 ST elevation (STEMI) myocardial infarction involving other coronary artery of inferior wall (principal); N17.9 Acute kidney failure, unspecified; I25.118 Atherosclerotic heart disease of native coronary artery with other forms of angina pectoris; I10 Essential (primary) hypertension; E78.5 Hyperlipidemia, unspecified; F17.210 Nicotine dependence, cigarettes, uncomplicated; I25.2 Old myocardial infarction; Z95.5 Presence of coronary angioplasty implant and graft; W19.XXXA Unspecified fall, initial encounter; Y93.89 Activity, other specified; Y92.099 Unspecified place in other non-institutional residence as the place of occurrence of the external cause; Y99.9 Unspecified external cause status; R11.0 Nausea; I25.5 Ischemic cardiomyopathy
CPT/HCPCS: 71010; 80048; 80061; 82310; 82435; 82550; 82552; 82565; 82947; 83735; 83880; 84132; 84295; 84484; 84520; 85002; 85025; 85610; 85730; 92941; 93005; 93458; 96374; 96375; C1725; C1757; C1760; C1769; C1874; C1887; C1893; G0269; J1644; J2250; J2405; J3010; J7030